=== PATIENT | female | born 1980 | race Hispanic/Latino ===

== ENCOUNTER 2017-12-14 15:01 | Emergency (ER) | payer OTHER ==
[2017-12-14 15:27] LABS: BASOPHILS % (AUTO) 0.7 % (0.0-5.0); EOSINOPHILS % (AUTO) 3.1 % (0.0-8.0); HEMATOCRIT 35.7 % (36-48); LYMPHOCYTES % (AUTO) 36.9 % (21.0-51.0); MEAN CORPUSCULAR HEMOGLOBIN 29.7 pg (27.0-33.0); MEAN CORPUSCULAR HGB CONC 33.4 g/dL (32.0-36.0); MONOCYTES % (AUTO) 6.8 % (3.0-13.0); NEUTROPHILS % (AUTO) 52.5 % (40.0-77.0); NUCLEATED RED BLOOD CELLS 0.1 % (0.0-0.19); PLATELET COUNT (AUTO) 235 K/uL (130-400); RED BLOOD CELL COUNT(AUTO) 4.02 MIL/uL (4.00-5.50); RED CELL DISTRIBUTION WIDTH 13.7 % (11.0-15.5); WHITE BLOOD COUNT (AUTO) 8.3 K/uL (4.8-10.8)
[2017-12-14 15:52] LABS: INR 0.91 (0.85-1.15); PARTIAL THROMBOPLASTIN TIME 30.2 SEC (26.3-35.5); PROTHROMBIN TIME 9.6 SEC (9.6-11.6)
[2017-12-14] MEDS ORDERED: METHYLPREDNISOLONE SOD SUCC 40MG/ML 1ML ONE (16:49)
[2017-12-14] MEDS ORDERED: DiphenhydrAMINE HCL 50 MG/ML VIAL ONE (16:50)
[2017-12-14] MEDS ORDERED: SODIUM CHLORIDE 0.9% 1000ML 1,000 ML IV ONE (16:50)
[2017-12-14] MEDS ORDERED: KETOROLAC TROMETHAMINE 30MG/ML ONE (16:50)
[2017-12-14] MEDS ORDERED: IPRATROPIUM/ALBUTEROL SULFATE 3 ML SOLUTION IH ONE (16:58)
== END 2017-12-14 18:09 | disposition home or self-care (01) ==
LOC: EDH 15:01
DX: R07.89 Other chest pain (principal); G44.209 Tension-type headache, unspecified, not intractable; M06.9 Rheumatoid arthritis, unspecified
CPT/HCPCS: 36415; 71045; 82550; 84484; 85025; 85378; 85610; 85730; 93005; 94640; 96374; 96375; 99285; J1200; J1885; J2920; J7030

== ENCOUNTER → 2018-10-29 | Outpatient (CLI) | payer OTHER | END | disposition home or self-care (01) | LOC: RAH 08:31 | PROVIDERS: ATTEND Physical Medicine & Rehabilitation | DX: M51.26 Other intervertebral disc displacement, lumbar region (principal); M54.16 Radiculopathy, lumbar region; M48.07 Spinal stenosis, lumbosacral region | CPT/HCPCS: 72148 ==

== ENCOUNTER 2021-10-21 13:56 | Emergency (ER) | payer OTHER ==
[~2021-10-21] VITALS: Ht 157.5 cm; Wt 98.9 kg
[2021-10-21] MEDS: KETOROLAC 15MG/ML VIAL (15MG/ML) ONE (14:21)
[2021-10-21] MEDS: ORPHENADRINE CITRATE 30 MG/ML ML IM ONE (14:21)
[2021-10-21] MEDS ORDERED: IBUP-2077 PO (15:08)
[2021-10-21] MEDS ORDERED: CYCL10TA16 PO (15:08)
[2021-10-21] MEDS ORDERED: TRAM50TA4 PO (15:08)
[2021-10-21 15:10] VITALS: BP 105/56
[2021-10-21] MEDS ORDERED: TRAMADOL HCL 50 MG TABLET PO ONE (15:30)
== END 2021-10-21 15:13 | disposition home or self-care (01) ==
LOC: EDH 13:56
DX: S16.1XXA Strain of muscle, fascia and tendon at neck level, initial encounter (principal); M54.50 Low back pain, unspecified; M25.511 Pain in right shoulder; M25.512 Pain in left shoulder; J45.909 Unspecified asthma, uncomplicated; Z79.1 Long term (current) use of non-steroidal anti-inflammatories (NSAID); Z88.1 Allergy status to other antibiotic agents; Z88.2 Allergy status to sulfonamides; X58.XXXA Exposure to other specified factors, initial encounter; Y93.89 Activity, other specified; Y92.89 Other specified places as the place of occurrence of the external cause; Y99.8 Other external cause status
CPT/HCPCS: 99284; 72050; 96372 ×2; J1885; J2360